=== PATIENT | female | born 1990 | race Caucasian/White ===

== ENCOUNTER 2019-01-21 07:12 | Emergency (ER) | payer OTHER ==
[2019-01-21] MEDS ORDERED: KETOROLAC 30 MG/ML INJ ONE (08:01)
[2019-01-21] MEDS ORDERED: NA CHLORIDE 0.9% 1,000 ML ONE (08:01)
--- NOTE | 2019-01-21 08:04 | RAD REPORT ---
EXAM DESCRIPTION: CT - Head Brain Wo Cont - 01/21/2019 7:45 am CLINICAL HISTORY: HEADACHE Drowsiness, headache COMPARISON: No comparisons TECHNIQUE: All CT scans are performed using dose optimization technique as appropriate and may inclu de automated exposure control or mA/KV adjustment according to patient size. FINDINGS: No intracranial hemorrhage, hydrocephalus or extra-axial fluid collection.No areas of brai n edema or evidence of midline shift. The paranasal sinuses and mastoids are clear. The calvarium is intact. IMPRESSION: No acute intracranial abnormality.
[2019-01-21 08:21] LABS: Urine Blood TRACE (NEG); Urine Glucose NEGATIVE (NEG); Urine Protein NEGATIVE (NEG); Urine Specific Gravity 1.025 (1.005-1.030)
[2019-01-21] MEDS ORDERED: PROMETHAZINE 25 MG/ML VIAL ONE (08:30)
[2019-01-21] MEDS ORDERED: METHYLPREDNISOLONE 125 MG INJ ONE (08:31)
[2019-01-21] MEDS ORDERED: VALPROATE NA 500 MG/5 ML INJ IV ONE (09:29)
[2019-01-21] MEDS ORDERED: VALPROATE SODIUM INJ 500 MG in NA CHLORIDE 0.9% 100 ML IV ONE (09:30)
--- NOTE | 2019-01-21 11:14 | EDPHYS ---
Physician Documentation [facility] Name: Lee Butler Age: 28 yrs Sex: Female : 1990 Arrival Date: 01/21/2019 Time: 07:16 Bed 20 Private MD: None, None ED Physician Eduardo Ferris HPI: 01/21 07:38 This 28 yrs old Female presents to ER via Ambulatory with complaints of kdr Headache. 07:38 The patient complains of pain to the right occipital area. The patient describes the kdr headache as aching, constant, a pressure. Onset: The symptoms/episode began/occurred gradually, 3 day(s) ago. Associated signs and symptoms: The patient has no apparent associated signs or symptoms, Pertinent negatives: altered mental status, dizziness, fever, malaise, nausea, neck stiffness, paresthesias, Photophobia rash, sinus congestion, sinus tenderness, vision changes, vision loss, vomiting, weakness, vertigo. Severity of symptoms: At its worst the pain was moderate, in the emergency department the pain is unchanged. Headache History: Denies prior headaches. The symptoms are alleviated by nothing. the symptoms are aggravated by nothing. The patient has not experienced similar symptoms in the past. The patient has not recently seen a physician. Historical: - Allergies: 07:29 PENICILLINS; ss - Home Meds: 07:29 None [Active]; ss - PMHx: 07:29 None; ss - PSHx: 07:29 None; ss - Immunization history:: Adult Immunizations up to date. - Social history:: Smoking status: Patient uses tobacco products, 5 cigarettes/ day. - Ebola Screening: : Patient denies exposure to infectious person Patient denies travel to an Ebola-affected area in the 21 days before illness onset. ROS: 07:38 Constitutional: Negative for fever, chills, and weight loss, Eyes: Negative for injury, kdr pain, redness, and discharge, ENT: Negative for injury, pain, and discharge, Neck: Negative for injury, pain, and swelling, Cardiovascular: Negative for chest pain, palpitations, and edema, Respiratory: Negative for shortness of breath, cough, wheezing, and pleuritic chest pain, Abdomen/GI: Negative for abdominal pain, nausea, vomiting, diarrhea, and constipation, Back: Negative for injury and pain, : Negative for injury, bleeding, discharge, and swelling, MS/Extremity: Negative for injury and deformity, Skin: Negative for injury, rash, and discoloration, Neuro: Negative for weakness, numbness, tingling, and seizure activity. Psych: Negative for depression, anxiety, suicide ideation, homicidal ideation, and hallucinations, Allergy/Immunology: Negative for hives, rash, and allergies, Endocrine: Negative for neck swelling, polydipsia, polyuria, polyphagia, and marked weight changes, Hematologic/Lymphatic: Negative for swollen nodes, abnormal bleeding, and unusual bruising. 07:38 Neuro: Positive for headache, Negative for altered mental status, dizziness, gait disturbance, hearing loss, loss of consciousness, numbness, seizure activity, speech changes, syncope, near syncope, tingling, tinnitus, tremor, visual changes, weakness. Exam: 07:38 Constitutional: This is a well developed, well nourished patient who is awake, alert, kdr and in no acute distress. Head/Face: Normocephalic, atraumatic. Eyes: Pupils equal round and reactive to light, extra-ocular motions intact. Lids and lashes normal. Conjunctiva and sclera are non-icteric and not injected. Cornea within normal limits. Periorbital areas with no swelling, redness, or edema. Neck: Trachea midline, no thyromegaly or masses palpated, and no cervical lymphadenopathy. Supple, full range of motion without nuchal rigidity, or vertebral point tenderness. No Meningismus. Chest/axilla: Normal chest wall appearance and motion. Nontender with no deformity. No lesions are appreciated. Cardiovascular: Regular rate and rhythm with a normal S1 and S2. No gallops, murmurs, or rubs. Normal PMI, no JVD. No pulse deficits. Respiratory: Lungs have equal breath sounds bilaterally, clear to auscultation and percussion. No rales, rhonchi or wheezes noted. No increased work of breathing, no retractions or nasal flaring. Abdomen/GI: Soft, non-tender, with normal bowel sounds. No distension or tympany. No guarding or rebound. No evidence of tenderness throughout. Back: No spinal tenderness. No costovertebral tenderness. Full range of motion. Skin: Warm, dry with normal turgor. Normal color with no rashes, no lesions, and no evidence of cellulitis. MS/ Extremity: Pulses equal, no cyanosis. Neurovascular intact. Full, normal range of motion. Neuro: Awake and alert, GCS 15, oriented to person, place, time, and situation. Cranial nerves II-XII grossly intact. Motor strength 5/5 in all extremities. Sensory grossly intact. Cerebellar exam normal. Normal gait. Psych: Awake, alert, with orientation to person, place and time. Behavior, mood, and affect are within normal limits. Vital Signs: 07:29 BP 113 / 84; Pulse 77; Resp 16; Temp 98.2(O); Pulse Ox 100% on R/A; Weight 49.9 kg; ss Height 5 ft. 1 in. (154.94 cm); Pain 2/10; 09:10 BP 109 / 78; Pulse 64; Resp 16; Temp 97.6(TE); Pulse Ox 100% on R/A; mh5 10:04 BP 103 / 70; Pulse 62; Resp 16; Pulse Ox 100% on R/A; ae4 11:05 BP 115 / 76; Pulse 66; Resp 15; Temp 98.0(TE); Pulse Ox 100% on R/A; mh5 07:29 Body Mass Index 20.78 (49.90 kg, 154.94 cm) ss MDM: 07:38 Data reviewed: vital signs, nurses notes, lab test result(s), radiologic studies. kdr Counseling: I had a detailed discussion with the patient and/or guardian regarding: the historical points, exam findings, and any diagnostic results supporting the discharge/admit diagnosis, lab results, radiology results, the need for outpatient follow up. 10:26 ED course: The patient states that she is feeling better - states that her IV was not kdr flowing well and since the IV had been adjusted and she was getting the medication and fluid, she has been feeling better. . 11:13 Patient medically screened. kdr 01/21 08:06 Order name: Urine Dipstick--Ancillary (enter results); Complete Time: 09:05 bd 01/21 08:06 Order name: Urine --Ancillary (enter results); Complete Time: 09:05 bd 01/21 07:36 Order name: CT Head Brain wo Cont; Complete Time: 08:10 kdr 01/21 07:36 Order name: Urine Dipstick-Ancillary (obtain specimen); Complete Time: 07:49 kdr 01/21 07:36 Order name: Urine Test (obtain specimen); Complete Time: 07:49 kdr Administered Medications: 07:54 Drug: NS 0.9% 1000 ml Route: IV; Rate: 1 bolus; Site: right antecubital; ss 11:34 Follow up: IV Status: Completed infusion ae4 07:59 Drug: TORadol - Ketorolac 15 mg Route: IVP; Site: right antecubital; ss 08:22 Follow up: Response: No adverse reaction; Pain is unchanged, physician notified ss 08:20 Drug: Phenergan 12.5 mg Route: IVP; Site: right antecubital; ss 11:31 Follow up: Response: No adverse reaction ae4 08:22 Drug: SOLU-Medrol 125 mg Route: IVP; Site: right antecubital; ss 11:31 Follow up: Response: No adverse reaction ae4 09:48 Drug: Depacon 500 mg Volume: 5 ml; Route: IV; Rate: calculated rate; Site: right rb1 antecubital; 11:34 Follow up: IV Status: Completed infusion ae4 Disposition: 01/21/19 11:13 Discharged to Home. Impression: Headache. - Condition is Stable. - Discharge Instructions: General Headache Without Cause. - Prescriptions for Tramadol 50 mg Oral Tablet - take 1 tablet by ORAL route every 8 hours as needed; 12 tablet. - Medication Reconciliation Form, Thank You Letter, Prescription Opioid Use, Work release form form. - Follow up: Private Physician; When: 2 - 3 days; Reason: If symptoms return, Further diagnostic work-up, Recheck today's complaints, Continuance of care, Re-evaluation by your physician. - Problem is new. - Symptoms have improved. Signatures: Dispatcher [employer] EDMS Eduardo Ferris MD MD [facility] Oly Cordero RN RN Coni Cormier, ROLDAN RN rb1 Floyd Larios RN RN ae4 Corrections: (The following items were deleted from the chart) 11:32 11:13 01/21/2019 11:13 Discharged to Home. Impression: Headache. Condition is Stable. ae4 Forms are Medication Reconciliation Form, Thank You Letter, Antibiotic Education, Prescription Opioid Use. Follow up: Private Physician; When: 2 - 3 days; Reason: If symptoms return, Further diagnostic work-up, Recheck today's complaints, Continuance of care, Re-evaluation by your physician. Problem is new. Symptoms have improved. kdr
--- NOTE | 2019-01-21 11:14 | ER ---
Nurse's Notes [facility] Name: Lee Butler Age: 28 yrs Sex: Female : 1990 Arrival Date: 01/21/2019 Time: 07:16 Bed 20 Private MD: None, None Diagnosis: Headache Presentation: 01/21 07:27 Presenting complaint: Patient states: Headache to R parietal area, 2/10 with sharp ss intermittent pains that shoot to R occipital area x 3 days. Patient reports that ibuprofen taken last night seemed to helped for a little bit, but it soon returned. Denies feeling ill, cough/ fever, UTI s/s. Patient states that when she woke up this morning she has mild chest discomfort, that resolved shortly after it began. Transition of care: patient was not received from another setting of care. Onset of symptoms was January 18, 2019. Risk Assessment: Do you want to hurt yourself or someone else? Patient reports no desire to harm self or others. Initial Sepsis Screen: Does the patient meet any 2 criteria? No. Patient's initial sepsis screen is negative. Does the patient have a suspected source of infection? No. Patient's initial sepsis screen is negative. Care prior to arrival: None. 07:27 Method Of Arrival: Ambulatory ss 07:27 Acuity: CHEIKH 3 ss Historical: - Allergies: 07:29 PENICILLINS; ss - Home Meds: 07:29 None [Active]; ss - PMHx: 07:29 None; ss - PSHx: 07:29 None; ss - Immunization history:: Adult Immunizations up to date. - Social history:: Smoking status: Patient uses tobacco products, 5 cigarettes/ day. - Ebola Screening: : Patient denies exposure to infectious person Patient denies travel to an Ebola-affected area in the 21 days before illness onset. Screenin:30 Abuse screen: Denies threats or abuse. Denies injuries from another. Nutritional ss screening: No deficits noted. Tuberculosis screening: Never had TB. Fall Risk None identified. Assessment: 07:30 General: Appears uncomfortable, Behavior is calm, cooperative, quiet, Denies fever, ss feeling ill, fatigue, chills. Pain: Complains of pain in right frontal area and right temporal area, 2/10 with intermittent sharp pains to R occipital area x 3 days. Pain currently is 2 out of 10 on a pain scale. at worst was 9 out of 10 on a pain scale. Neuro: Level of Consciousness is awake, alert, obeys commands, Oriented to person, place, time, situation, Gait is steady, Speech is normal, Facial symmetry appears normal, Pupils are PERRLA. Cardiovascular: Heart tones S1 S2 present Capillary refill < 3 seconds is brisk in bilateral fingers Patient's skin is warm and dry. Respiratory: Airway is patent Respiratory effort is even, unlabored, Respiratory pattern is regular, symmetrical, Denies cough, shortness of breath. GI: Abdomen is flat, non-distended, Patient currently denies abdominal pain, diarrhea, nausea, vomiting. : Denies burning with urination, urinary frequency. EENT: Nares are clear Oral mucosa is moist. Derm: Skin is intact, is healthy with good turgor, Skin is dry, Skin is pink, warm \T\ dry. normal. Musculoskeletal: Circulation, motion, and sensation intact. Range of motion: intact in all extremities, Swelling absent. 07:48 Reassessment: Patient back from CT. In restroom at this time obtaining urine specimen. ss 08:23 Reassessment: No change from previous assessment. Patient reports that symptoms have ss not improved. Dr. Ferris notified. New medication administered as ordered. Mother remains at bedside. Pt is grateful for care received thus far. 09:15 Reassessment: Sent Fax for the Depacon. rb1 10:00 Reassessment: Patient appears in no apparent distress at this time. Warm blanket ae4 provided. Patient states feeling better. 11:30 Reassessment: Patient appears in no apparent distress at this time. Patient states ae4 feeling better. Patient states symptoms have improved. Vital Signs: 07:29 BP 113 / 84; Pulse 77; Resp 16; Temp 98.2(O); Pulse Ox 100% on R/A; Weight 49.9 kg; ss Height 5 ft. 1 in. (154.94 cm); Pain 2/10; 09:10 BP 109 / 78; Pulse 64; Resp 16; Temp 97.6(TE); Pulse Ox 100% on R/A; mh5 10:04 BP 103 / 70; Pulse 62; Resp 16; Pulse Ox 100% on R/A; ae4 11:05 BP 115 / 76; Pulse 66; Resp 15; Temp 98.0(TE); Pulse Ox 100% on R/A; mh5 07:29 Body Mass Index 20.78 (49.90 kg, 154.94 cm) ED Course: 07:16 Patient arrived in ED. dl4 07:16 None, None is Private Physician. dl4 07:22 Eduardo Ferris MD is Attending Physician. kdr 07:27 Oly Cordero RN is Primary Nurse. ss 07:29 Triage completed. ss 07:29 Arm band placed on right wrist. ss 07:30 Patient has correct armband on for positive identification. Bed in low position. Call ss light in reach. 07:44 CT Head Brain wo Cont In Process Unspecified. EDMS 07:54 Inserted saline lock: 22 gauge in right antecubital area, using aseptic technique. ss 07:59 Urine collected: clean catch specimen, clear. 5 11:32 No provider procedures requiring assistance completed. IV discontinued, intact, ae4 bleeding controlled, No redness/swelling at site. Pressure dressing applied. Administered Medications: 07:54 Drug: NS 0.9% 1000 ml Route: IV; Rate: 1 bolus; Site: right antecubital; ss 11:34 Follow up: IV Status: Completed infusion ae4 07:59 Drug: TORadol - Ketorolac 15 mg Route: IVP; Site: right antecubital; ss 08:22 Follow up: Response: No adverse reaction; Pain is unchanged, physician notified ss 08:20 Drug: Phenergan 12.5 mg Route: IVP; Site: right antecubital; ss 11:31 Follow up: Response: No adverse reaction ae4 08:22 Drug: SOLU-Medrol 125 mg Route: IVP; Site: right antecubital; ss 11:31 Follow up: Response: No adverse reaction ae4 09:48 Drug: Depacon 500 mg Volume: 5 ml; Route: IV; Rate: calculated rate; Site: right rb1 antecubital; 11:34 Follow up: IV Status: Completed infusion ae4 Outcome: 11:13 Discharge ordered by . kdr 11:32 Discharged to home ambulatory, with family. ae4 11:32 Condition: stable 11:32 Discharge instructions given to patient, Instructed on discharge instructions, follow up and referral plans. Demonstrated understanding of instructions, Prescriptions given X 1. 11:32 Patient left the ED. ae4 Signatures: Dispatcher [employer] EDMS Eduardo Ferris MD MD kdr Smirch, Shelby, RN RN Coni Cormier RN RN Cristina Blum 5 Timo Leblanc 4 Floyd Larios RN RN ae4 Corrections: (The following items were deleted from the chart) 09:12 09:10 BP 109 / 78; Pulse 64bpm; Resp 16bpm; Pulse Ox 100% RA; 5 5
== END 2019-01-21 11:32 | disposition home or self-care (01) ==
LOC: ER 07:12
DX: R51 Headache (principal); Z88.0 Allergy status to penicillin; Z72.0 Tobacco use
CPT/HCPCS: 70450; 81003; 81025; 96361; 96365; 96366; 96375; 99284; J2550; J2930; J7030